=== PATIENT | female | born 1975 | race African-American/Black ===

== ENCOUNTER 2016-10-30 20:15 | Emergency (ER) | payer OTHER ==
[~2016-10-30] VITALS: Ht 172.7 cm; Wt 74.8 kg
[2016-10-30 21:39] VITALS: BP 94/58
[2016-10-30] MEDS ORDERED: PREDNISONE 20 M20 MG PO (21:50)
[2016-10-30] MEDS ORDERED: PROMETHAZI6.25 MG/5 PO (21:50)
== END 2016-10-30 21:52 | disposition home or self-care (01) ==
LOC: ER 20:15
DX: J20.8 Acute bronchitis due to other specified organisms (principal)